=== PATIENT | female | born 1985 | race Caucasian/White ===

== ENCOUNTER 2019-07-01 15:58 | Emergency (ER) | payer OTHER ==
[~2019-07-01] VITALS: Ht 162.6 cm; Wt 65.0 kg
[~2019-07-01 15:58] MED LIST: CEPH-443 PO; METH10TA5 PO; PROP10TA6 PO
[2019-07-01 16:08] VITALS: Ht 162.6 cm; Wt 65.0 kg
[2019-07-01] MEDS ORDERED: SOD CHLORIDE 0.9% 1,000 ML IV STA (17:04)
[2019-07-01] MEDS ORDERED: KETOROLAC 15 MG INJ IV STA (17:04)
[2019-07-01] MEDS ORDERED: CEPHALEXIN 500 MG CAP PO ONE (18:00)
[2019-07-01 19:22] VITALS: BP 117/70; PULSE 103; RESP 18
== END 2019-07-01 19:30 | disposition home or self-care (01) ==
LOC: FTE 15:58
DX: N39.0 Urinary tract infection, site not specified (principal); E05.90 Thyrotoxicosis, unspecified without thyrotoxic crisis or storm; R00.0 Tachycardia, unspecified
CPT/HCPCS: 36415; 80053; 81001; 81025; 83690; 84439; 84443; 84481; 84484; 85025; 86308; 87880; 96374; J1885; J7030; Z7502; Z7610; 93005